=== PATIENT | female | born 1975 | race Caucasian/White ===

== ENCOUNTER → 2020-08-23 | Outpatient (CLI) | payer BC ==
[2020-08-23 15:37] LABS: Basophils % (A) 1 %; Eosinophils # (A) 0.1 k/uL (0-0.7); Eosinophils % (A) 3 %; HCT 37.6 % (34.0-46.0); HGB 12.7 gm/dL (11.4-16.0); Lymphocytes # (A) 1.4 k/uL (1.0-4.8); Lymphocytes % (A) 34 %; MCH 32.1 pg (25.0-35.0); MCHC 33.8 g/dL (31.0-37.0); MCV 94.9 fL (80.0-100.0); Mean Platelet Volume 7.2; Monocytes # (A) 0.3 k/uL (0-1.0); Monocytes % (A) 6 %; Neutrophils # (A) 2.2 k/uL (1.3-7.7); Neutrophils % (A) 55 %; Platelet Count 223 k/uL (150-450); RBC 3.96 m/uL (3.80-5.40); RDW 12.4 % (11.5-15.5); WBC 4.1 k/uL (3.8-10.6)
== END | disposition home or self-care (01) ==
LOC: LABPAT 14:45
PROVIDERS: ATTEND Obstetrics & Gynecology
DX: Z01.812 Encounter for preprocedural laboratory examination (principal); N92.0 Excessive and frequent menstruation with regular cycle
CPT/HCPCS: 36415; 85025

== ENCOUNTER 2020-09-06 09:25 | Day surgery (SDC) | payer BC ==
[2020-09-02 12:02] VITALS: BMI 24.9
--- NOTE | 2020-09-05 13:29 | HP ---
HISTORY AND PHYSICAL REASON FOR ADMISSION: Procedure date scheduled 09/06/2020. HISTORY: This is a 45-year-old 2, para 2 woman with a history of menorrhagia. She has regular monthly menses every 24-28 days, lasting 4-5 days in duration with very heavy flow. She has elected to undergo NovaSure endometrial ablation for treatment of this. She had a benign endometrial biopsy in the office setting and pelvic ultrasound with uterus measuring 5.6 x 3.4 x 8.8 cm. Normal endometrial stripe. There was an intracavitary lesion 0.5 x 0.6 cm, possibly consistent with an endometrial polyp. ALLERGY: None. MEDICATIONS: Celexa 20 mg daily, Xyzal 5 mg daily, testosterone 125 mg Q 4 months, ibuprofen 200 mg p.r.n. PAST MEDICAL HISTORY: Asthma and history of kidney stones. PAST SURGICAL HISTORY: Cholecystectomy. 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 Her partner had a vasectomy. No history of abnormal Pap smears or STDs. FAMILY HISTORY: Emphysema in her father. SOCIAL HISTORY: Negative for significant tobacco, alcohol, or drug use. She is . REVIEW OF SYSTEMS: 12-point review of systems negative except for that described above. PHYSICAL EXAM: Height 5 feet 7-3/4 inches, weight 165 pounds, blood pressure 120/90, heart rate 66. In GENERAL, a pleasant female in no obvious distress. HEENT exam is unremarkable with no palpable lymphadenopathy or thyromegaly. The HEART is of regular rate and rhythm. The LUNGS are clear to auscultation bilaterally. BREAST exam is negative. The ABDOMEN is slim, soft and nontender with no rebound, no guarding and no flank pain. On PELVIC examination, she has normal female external genitalia without lesions or irritation. The uterus is small, freely mobile in the midline and no palpable adnexal masses are appreciated. NEUROLOGICALLY, she is grossly intact and mood and affect are normal. ASSESSMENT: A 45-year-old 2, para 2 woman with menorrhagia. She is scheduled to undergo diagnostic hysteroscopy with NovaSure endometrial ablation on 09/06/2020. She uses a vasectomy for contraception. The procedure, anticipated recovery, and postoperative bleeding profile were reviewed with the patient. Risks include, but are not limited to bleeding, infection, uterine injury with possible perforation and damage to internal structures. The patient understands these risks and agrees to proceed. MMODL / IJN: [id number] /
[~2020-09-06 09:25] MED LIST: DEXAMETHASONE SOD PHOSPHATE 4 MG/ML 1 ML VIAL IV ONE; HYDROmorphone 0.5 MG/0.5 ML SYRINGE IVP PRN; LACTATED RINGERS 1,000 ML IV SCH; LIDOCAINE 1% (10MG/ML) FOR IV START INTRADERMA PRN; ONDANSETRON 4 MG/2 ML VIAL IVP ONE; Pre Op ABX Message 1 EACH MISC MISCELLANE ONE; fentaNYL (PF) 50 MCG/ML 2 ML AMP IV PRN
[2020-09-06] MEDS ORDERED: MIDAZOLAM 2 MG/2 ML VIAL IV ONE (10:32)
[2020-09-06] MEDS ORDERED: PROPOFOL 10 MG/ML 20 ML VIAL IV ONE (11:11)
[2020-09-06] MEDS ORDERED: LIDOCAINE 1% INJ 10MG/ML (20 ML MDV) ONE (11:11)
[2020-09-06] MEDS ORDERED: KETOROLAC 15 MG/ML 1 ML VIAL ONE (11:11)
[2020-09-06] MEDS ORDERED: fentaNYL (PF) 50 MCG/ML 2 ML AMP ONE (11:11)
[2020-09-06] MEDS ORDERED: LIDOCAINE 1%-EPI 1:100,000 20 ML VIAL SUBMUCOSAL ONE ×2 (11:20→11:29)
[2020-09-06] MEDS ORDERED: SILVER NITRATE APPLICATOR 1 EACH STICK..EA. TOPICAL ONE (11:37)
--- NOTE | 2020-09-06 11:53 | P.OP ---
Date of Procedure: 09/06/20 Preoperative Diagnosis: Menorrhagia Postoperative Diagnosis: Same Procedure(s) Performed: Diagnostic hysteroscopy and NovaSure endometrial ablation Anesthesia: MAC Surgeon: Flor Whitfield Estimated Blood Loss (ml): 10 IV fluids (ml): 200 Urine output (ml): 25 Pathology: none sent Condition: stable Disposition: PACU Operative Findings: Fluffy endometrium with no gross intracavitary lesions. Bilateral tubal ostia were visualized. Description of Procedure: After the patient was met in the preoperative holding area and all questions were answered, she was taken to the operating room where anesthetic was administered without incident. Appropriate timeout procedure was undertaken. The patient was positioned, prepped and draped in the dorsal high lithotomy position. Exam under anesthetic was undertaken. The bladder was drained for approximately 25 mL of clear urine. Speculum was placed in the vagina and the cervix was grasped anteriorly with a single-tooth tenaculum. Paracervical block with lidocaine plus epinephrine was placed. The uterus was sounded to 8.5 cm. The cervix was then sequentially dilated with Hegar dilators to allow for passage of the diagnostic hysteroscope. The hysteroscope was introduced and the cavity was assessed. There was fluffy endometrium but nothing that appeared to be a distinct polyp. Hysteroscope was removed. The NovaSure ablation device was then introduced. Cavity length of 4.5 cm width of 4.4 cm. Treatment cycle was initiated after passing cavity assessment test. Power was 106 W for a time of 120 seconds. Following cessation of the treatment cycle the device was removed and hysteroscope was reintroduced. Complete complete desiccation of the endometrium was appreciated. The hysteroscope was removed. Instruments removed from the cervix. There was some bleeding from the tenaculum sites which silver nitrate was applied. Hemostasis was noted. The patient was then awoken from anesthetic and transported to recovery area in good condition. All counts reported to me as correct by the operating room staff
[2020-09-06 11:55] VITALS: TEMP 97.1
[2020-09-06 12:07] VITALS: RESP 16
[2020-09-06 12:54] VITALS: BP 125/89; PULSE 65
== END 2020-09-06 13:12 | disposition home or self-care (01) ==
LOC: OR 09:25
PROVIDERS: ATTEND Obstetrics & Gynecology
DX: N92.0 Excessive and frequent menstruation with regular cycle (principal); Z79.899 Other long term (current) drug therapy; J45.909 Unspecified asthma, uncomplicated; F32.9 Major depressive disorder, single episode, unspecified
CPT/HCPCS: 81025; 58563; J2250; J1100; J2405; J2001; J3010; J1885; J2704

== ENCOUNTER → 2022-09-14 | Outpatient (CLI) | payer BC ==
[2022-09-14 21:37] LABS: Basophils # (A) 0.05 X 10*3/uL (0.00-0.10); Basophils % (A) 0.9 %; Eosinophils # (A) 0.04 X 10*3/uL (0.04-0.35); Eosinophils % (A) 0.7 %; HCT 40.3 % (37.2-46.3); HGB 12.9 d/dL (12.0-15.0); MCH 31.2 pg (27.0-32.0); MCV 97.6 FL (80.0-97.0); Mean Platelet Volume 10.6 FL (9.5-12.2); Monocytes # (A) 0.65 X 10*3/uL (0.20-1.00); Monocytes % (A) 11.5 %; NRBC Per 100 WBC 0 X 10*3/uL (0.00-0.01); Neutrophils # (A) 3.21 X 10*3/uL (1.80-7.70); Neutrophils % (A) 56.7 %; Platelet Count 280 X 10*3/uL (140-440); RBC 4.13 X 10*6/uL (4.10-5.20); RDW 12.6 % (11.5-14.5); WBC 5.66 X 10*3/uL (4.50-10.00)
== END | disposition home or self-care (01) ==
LOC: LABPAT 13:36
PROVIDERS: ATTEND Obstetrics & Gynecology
DX: Z01.812 Encounter for preprocedural laboratory examination (principal); R87.613 High grade squamous intraepithelial lesion on cytologic smear of cervix (HGSIL)
CPT/HCPCS: 36415; 85025

== ENCOUNTER 2022-09-17 07:15 | Day surgery (SDC) | payer BC ==
--- NOTE | 2022-09-14 02:07 | HP ---
HISTORY AND PHYSICAL DATE OF PROCEDURE: 09/17/2022. HISTORY: This is a 47-year-old 2, para 2 woman, who was found on recent cervical colposcopy to have high grade lesions. She is scheduled for cervical cold knife cone biopsy. ALLERGIES: None. MEDICATIONS: 1. Celexa 20 mg daily. 2. Xyzal 5 mg daily. 3. Testosterone q.3 months. PAST MEDICAL HISTORY: Asthma. PAST SURGICAL HISTORY: Cholecystectomy and NovaSure endometrial ablation. 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 Her partner had a vasectomy. Abnormal Pap smear history as above. PAST SOCIAL HISTORY: She is . Negative for tobacco, alcohol, and drug use. FAMILY HISTORY: Noncontributory. REVIEW OF SYSTEMS: Negative for abdominal or pelvic pain, fevers, chills, vaginal bleeding, discharge, or lesions. PHYSICAL EXAMINATION: VITAL SIGNS: Blood pressure 130/82, pulse 77, O2 saturation 97%. Weight 166 pounds, height 5 feet 7-3/4 inches. GENERAL: This is a pleasant female, in no acute distress. HEENT: Exam is unremarkable with no thyromegaly. LUNGS: Clear to auscultation bilaterally. HEART: Regular rate and rhythm. ABDOMEN: Soft and nontender with no rebound or guarding or flank pain. PELVIC: She has normal female external genitalia without lesions or discharge. On speculum examination, the cervix is free of any visible gross lesions or discharge. On bimanual examination, the uterus is small, freely mobile and in the midline with no adnexal masses palpable. ASSESSMENT: A 47-year-old 2, para 2 woman with high-grade squamous intraepithelial lesion, colposcopy, who is scheduled for cervical cold knife cone biopsy. This procedure and anticipated recovery have been reviewed with the patient in the office setting. Risks include, but are not limited to bleeding, infection, transfusion, injury to bowel, bladder, uterus, or other pelvic organs. There is possibility of incomplete resection of the abnormality. The patient understands these risks and consent is obtained. She is scheduled for this procedure on 09/17/2022. MMODL / IJN: [id number] /
[~2022-09-17 07:15] MED LIST changes: -LIDOCAINE 1% (10MG/ML) FOR IV START INTRADERMA PRN; +MIDAZOLAM 2 MG/2 ML VIAL IV PRN; +SCOPOLAMINE 1 MG/72 HR PATCH TRANSDERM ONE; -fentaNYL (PF) 50 MCG/ML 2 ML AMP IV PRN
[2022-09-17] MEDS ORDERED: KETOROLAC 15 MG/ML 1 ML VIAL ONE (08:33)
[2022-09-17] MEDS ORDERED: MIDAZOLAM 2 MG/2 ML VIAL ONE (08:33)
[2022-09-17] MEDS ORDERED: PROPOFOL 10 MG/ML 20 ML VIAL IV ONE (08:33)
[2022-09-17] MEDS ORDERED: fentaNYL (PF) 50 MCG/ML 2 ML AMP ONE (08:33)
[2022-09-17] MEDS ORDERED: LIDOCAINE 0.5%-EPI 1:200,000 50 ML VIAL SUBMUCOSAL ONE ×2 (08:49)
[2022-09-17] MEDS ORDERED: IODINE/POTASSIUM IODIDE 14 ML BOTTLE TOPICAL ONE (08:51)
[2022-09-17] MEDS ORDERED: FERRIC SUBSULFATE (MONSELS) JAR TOPICAL ONE (08:51)
--- NOTE | 2022-09-17 09:05 | P.OP ---
Date of Procedure: 09/17/22 Preoperative Diagnosis: High-grade cervical dysplasia Postoperative Diagnosis: Same Procedure(s) Performed: Cervical cold knife cone biopsy Anesthesia: HUMBERTO, local Surgeon: Flor Whitfield Estimated Blood Loss (ml): 15 IV fluids (ml): 300 Pathology: other (Cervical cone biopsy) Condition: stable Disposition: PACU Indications for Procedure: High-grade cervical dysplasia, COREY-2 on recent colposcopic biopsies Operative Findings: Patulous appearing cervix with no gross visible lesions. Grade 2 cystocele grade 2 rectocele grade 2-3 cervical uterine prolapse. Description of Procedure: After the patient was met in the preoperative holding area and all questions were answered, she was taken to the operating room where anesthetic was administered without incident. She was positioned prepped and draped in the dorsal lithotomy position. A weighted speculum was placed in the vagina and the above findings were noted. The cervix was grasped anteriorly with a single- tooth tenaculum and paracervical block with half percent lidocaine plus epinephrine was placed. Stay sutures with 2-0 Vicryl were placed at the 3 and 9:00 positions. Lugol's solution was applied to identify the transformation zone. 11 blade scalpel was then utilized to circumferentially incise immediately lateral to the transformation zone to a depth of 1 cm. This was angled inward then creating the cone biopsy. This was removed. Bovie electrocautery was utilized to cauterize the base of the biopsy site. There was additional bleeding noted at the 6 o'clock position and a [id number] with 2-0 Vicryl suture was placed and hemostasis was noted. Further electrocautery was utilized to cauterize the edges of the biopsy site. Surgicel powder was then placed in the biopsy site. No active bleeding was appreciated. Stay sutures were removed. Biopsy site was observed and again no active bleeding noted. Instruments were therefore removed from the vagina. Patient was awoken from anesthetic and transported recovery area in stable condition. All counts reported to me as correct.
[2022-09-17 09:23] VITALS: TEMP 97
[2022-09-17 09:24] VITALS: RESP 16
[2022-09-17 10:27] VITALS: BP 117/78; PULSE 51
== END 2022-09-17 11:01 | disposition home or self-care (01) ==
LOC: OR 07:15
PROVIDERS: ATTEND Obstetrics & Gynecology
DX: R87.613 High grade squamous intraepithelial lesion on cytologic smear of cervix (HGSIL) (principal); J45.909 Unspecified asthma, uncomplicated; Z79.899 Other long term (current) drug therapy; Z90.49 Acquired absence of other specified parts of digestive tract
CPT/HCPCS: 57520; 81025; J2250; J1100; J2405; J3010; J1885; J2704; 88307; 88342

== ENCOUNTER 2023-12-04 08:25 | Day surgery (SDC) | payer BC ==
[~2023-12-04 08:25] MED LIST changes: -DEXAMETHASONE SOD PHOSPHATE 4 MG/ML 1 ML VIAL IV ONE; -HYDROmorphone 0.5 MG/0.5 ML SYRINGE IVP PRN; -LACTATED RINGERS 1,000 ML IV SCH; +LIDOCAINE 1% (10MG/ML) FOR IV START INTRADERMA PRN; -ONDANSETRON 4 MG/2 ML VIAL IVP ONE; -Pre Op ABX Message 1 EACH MISC MISCELLANE ONE; -SCOPOLAMINE 1 MG/72 HR PATCH TRANSDERM ONE; +fentaNYL (PF) 50 MCG/ML 2 ML AMP IVP PRN
[2023-12-04] MEDS: OXYMETAZOLINE 0.05% NASL SPRAY 1 SPRAY BOTTLE EA NOSTRIL PRN (09:12)
[2023-12-04] MEDS: IV FLUID CONTINUATION 1,000 ML IV ONE (09:26)
[2023-12-04] MEDS: ONDANSETRON 4 MG/2 ML VIAL IVP ONE (09:27)
[2023-12-04] MEDS: DEXAMETHASONE SOD PHOSPHATE 4 MG/ML 1 ML VIAL IV ONE (09:27)
[2023-12-04] MEDS: LACTATED RINGERS 1,000 ML IV SCH (09:27)
[2023-12-04] MEDS: FAMOTIDINE 20 MG/2 ML VIAL IV PRN (09:27)
[2023-12-04] MEDS ORDERED: PROPOFOL 10 MG/ML 20 ML VIAL IV ONE (09:35)
[2023-12-04] MEDS ORDERED: SUCCINYLCHOLINE CHLORIDE 200 MG/10 ML VIAL IV ONE (09:35)
[2023-12-04] MEDS ORDERED: fentaNYL (PF) 50 MCG/ML 2 ML AMP ONE (09:35)
[2023-12-04] MEDS ORDERED: PHENYLEPHRINE 10 MG/ML VIAL ONE (09:35)
[2023-12-04] MEDS ORDERED: LIDOCAINE 1% INJ 10MG/ML (20 ML MDV) ONE (09:35)
[2023-12-04] MEDS ORDERED: MIDAZOLAM 2 MG/2 ML VIAL ONE (09:35)
[2023-12-04] MEDS: LIDOCAINE 1%-EPI 1:100,000 20 ML VIAL SUBMUCOSAL ONE ×3 (09:48)
[2023-12-04] MEDS: BACITRACIN ZINC 500 UNIT/GM OINT 28.4 GM TUBE TOPICAL ONE ×2 (09:52→10:26)
--- NOTE | 2023-12-04 10:34 | P.OP ---
Date of Procedure: 12/04/23 Preoperative Diagnosis: deviated nasal septum Inferior turbinate hypertrophy Chronic sinusitis Postoperative Diagnosis: same Procedure(s) Performed: septoplasty Outfractured and submucous resection of the inferior turbinates Bilateral endoscopic sinus surgery including bilateral maxillary antrostomy with removal of tissue from the maxillary sinuses, left anterior and posterior ethmoidectomy, right anterior and posterior ethmoidectomy with frontal sinus otomy and removal of tissue from the right frontal sinus Anesthesia: HUMBERTO Surgeon: Lebron Bird Estimated Blood Loss (ml): 10 Pathology: other (nasal septal bone and cartilage and sinus contents) Condition: stable Disposition: PACU Indications for Procedure: this is a 48-year-old white female whose had difficulties with chronic nasal airway obstruction, congestion and recurrent sinusitis Operative Findings: nasal septum deviated to the right with inferior turbinate hypertrophy bilateral maxillary ostia were obstructed bilaterally with small polyps in the maxillary sinuses bilaterally, mucosal thickening throughout the ethmoid air cells bilaterally as well as a small polyp in the right frontal sinus Description of Procedure: The patient was brought into the operative suite and placed in a supine position. The patient underwent induction of general anesthesia with oral endotracheal intubation without difficulty. The patient was prepped and draped in the usual aseptic fashion with the orbits in the operating field for monitoring to the case and the computed tomography scan was on the computer screen for review throughout the case. 1% lidocaine with 1 :100,000 epinephrine was infused submucosally into both sides of the nasal septum as well as the lateral nasal wall and anterior tips of the middle turbinates. While this was taking vasoconstrictive effect the inferior turbinates were infractured with Pasco elevator and partial submucous resection of the inferior turbinates was performed with a portion of the submucosal soft tissue and the inferior turbinate bone removed with Coblation device. The inferior turbinates were then outfractured with the [place]co elevator. A left hemitransfixion incision was then made with the mucoperichondrial and mucoperiosteal flap on the left elevated. The bony cartilaginous junction was disarticulated and the mucoperiosteal flap on the right was elevated. Bony nasal septal deformities were removed with Chris forceps and an inferior cartilaginous strip was removed leaving a full 1.5 cm caudal strut. Checking intranasally this corrected the nasoseptal deformities and the hemitransfixion incision was closed with a running 4-0 chromic suture. Full 0 endoscopic examination is performed bilaterally. Beginning on the left, the middle turbinate was medialized. The maxillary ostium was located with a ballpoint probe and an infundibulotomy was performed followed by uncinectomy. The maxillary antrostomy was enlarged at the expense of the anterior and posterior fontanelle taking care anteriorly not to injure the lacrimal bone. The maxillary sinus was evaluated with 30 and 70 endoscope .[Abnormal appearing tissue was removed from the maxillary sinus-bilateral polyps]. Anterior and posterior ethmoidectomy were then performed from anterior to posterior to the level of the skull base. The roof of the anterior ethmoid air cells were then cleaned from posterior to anterior using up-biting Blakesley forceps.. Attention was then turned to the right where the procedures were followed as they had been on the left including medialization middle turbinate, maxillary antrostomy with removal of tissue from the maxillary sinus, anterior and posterior ethmoidectomy and in addition frontal sinusotomy utilizing 30 and 70 endoscope with giraffe forceps and curved suction with exploration and removal of small polyp. [Nasopore nasal dressing was placed in the middle meatus bilaterally under direct visualization]. Bilateral Edgar airway splints coated with bacitracin ointment were placed and sutured transseptally with a 4-0 nylon suture. The patient was suctioned in oral gastric fashion and was allowed to emerge from general anesthesia having tolerated procedure well and was extubated in the operating suite and transferred to the postoperative recovery area in satisfactory condition.
[2023-12-04] MEDS ORDERED: droPERidol 5 MG/2 ML VIAL IVP ONE (10:44)
[2023-12-04] MEDS: droPERidol 5 MG/2 ML VIAL IVP ONE (10:45)
[2023-12-04 10:52] VITALS: TEMP 98
[2023-12-04] MEDS: HYDROmorphone 0.5 MG/0.5 ML SYRINGE IVP PRN (11:04)
[2023-12-04 12:05] VITALS: PULSE 57
[2023-12-04 12:06] VITALS: BP 139/86; RESP 20
== END 2023-12-04 12:27 | disposition home or self-care (01) ==
LOC: OR 08:25
PROVIDERS: ATTEND Otolaryngology
DX: J34.3 Hypertrophy of nasal turbinates (principal); J34.2 Deviated nasal septum; J32.9 Chronic sinusitis, unspecified; J45.909 Unspecified asthma, uncomplicated; F41.9 Anxiety disorder, unspecified; Z79.899 Other long term (current) drug therapy; Z90.49 Acquired absence of other specified parts of digestive tract
CPT/HCPCS: 81025; 88300; 88305